=== PATIENT | female | born 1945 | race Two or more races ===

== ENCOUNTER 2020-06-13 13:26 | Outpatient (CLI) | payer OTHER | END 2020-06-13 13:33 | disposition home or self-care (01) | LOC: RAD 13:26 | PROVIDERS: ATTEND Internal Medicine | DX: M19.041 Primary osteoarthritis, right hand (principal); M25.531 Pain in right wrist; M19.031 Primary osteoarthritis, right wrist ==

== ENCOUNTER 2021-04-03 13:41 | Outpatient (CLI) | payer OTHER | END 2021-04-03 13:45 | disposition home or self-care (01) | LOC: MAMO-SONO 13:41 | PROVIDERS: ATTEND Internal Medicine | DX: N60.11 Diffuse cystic mastopathy of right breast (principal); N60.12 Diffuse cystic mastopathy of left breast; Z12.31 Encounter for screening mammogram for malignant neoplasm of breast ==

== ENCOUNTER 2023-08-26 14:09 | Outpatient (CLI) | payer OTHER | END 2023-08-26 14:17 | disposition home or self-care (01) | LOC: RAD 14:09 | DX: D64.9 Anemia, unspecified (principal); D68.8 Other specified coagulation defects; I10 Essential (primary) hypertension ==

== ENCOUNTER 2023-10-13 13:45 | Outpatient (CLI) | payer OTHER | END 2023-10-13 13:46 | disposition home or self-care (01) | LOC: EKG 13:45 | DX: I10 Essential (primary) hypertension (principal); D64.9 Anemia, unspecified; D68.8 Other specified coagulation defects ==

== ENCOUNTER → 2024-06-29 07:20 | Outpatient (CLI) | payer OTHER | END | disposition home or self-care (01) | LOC: NUCLEAR 07:00 | DX: R11.2 Nausea with vomiting, unspecified (principal) | CPT/HCPCS: 78264; A9541 ==

== ENCOUNTER 2024-09-05 13:11 | Outpatient (CLI) | payer OTHER ==
[2024-09-05 13:38] LABS: HEMATOCRIT 38.6 % (36.0-45.00); HEMOGLOBIN 12.9 g/dL (12.0-15.00); MEAN CELL VOLUME 89.4 fL (80.00-100.00); MEAN CORPUSCULAR HEMOGLOBIN 29.8 pg (27.00-32.0); MEAN CORPUSCULAR HGB CONC 33.4 g/dl (32.0-36.0); PLATELET COUNT 261 K/uL (150-450); RED BLOOD COUNT 4.32 M/uL (4.00-6.00); RED CELL DISTRIBUTION WIDTH 14.1 % (11.5-14.5)
[2024-09-05 16:16] LABS: MYCOPLASMA PNEUMONIAE IGM NON REACTIVE (NO REACTIVE)
== END 2024-09-05 13:15 | disposition home or self-care (01) ==
LOC: LAB 13:11
PROVIDERS: ATTEND Internal Medicine
DX: D64.9 Anemia, unspecified (principal); B96.0 Mycoplasma pneumoniae [M. pneumoniae] as the cause of diseases classified elsewhere; J10.1 Influenza due to other identified influenza virus with other respiratory manifestations; Z20.828 Contact with and (suspected) exposure to other viral communicable diseases